=== PATIENT | female | born 1970 | race Caucasian/White ===

== ENCOUNTER 2020-12-29 11:50 | Inpatient (IN) | payer OTHER ==
[~2020-12-29] VITALS: Ht 152.4 cm; Wt 100.4 kg
[2020-12-29] MEDS: ALBUTEROL SULF 0.083% NEB SOLN 3 ML NEB NEB SCH ×3 (00:12→19:30)
[2020-12-29] MEDS ORDERED: SODIUM CHLORIDE 0.9% 1000ML 1,000 ML IV STA (12:52)
[2020-12-29] MEDS ORDERED: METHYLPREDNISOLONE SOD SUCC 125 MG/2ML VIAL IV STA (12:52)
[2020-12-29] MEDS ORDERED: ALBUTEROL/IPRATROPIUM 3 ML NEB NEB ONE (13:00)
[2020-12-29] MEDS ORDERED: LEVOFLOXACIN 750MG/D5W 150ML 150 ML IV ONE (13:00)
[2020-12-29 13:06] LABS: BASOPHILS % 0.3 % (0.0-1.0); HEMATOCRIT 42.1 % (34.2-44.1); HEMOGLOBIN 13.4 g/dL (12.0-16.0); LYMPHOCYTES # (AUTO) 1.1 (1.0-3.2); LYMPHOCYTES % 12.3 % (18.0-39.1); MEAN CORPUSCULAR HEMOGLOBIN 29.1 pg (28-32); MEAN CORPUSCULAR HGB CONC 31.8 g/dL (31-35); MEAN CORPUSCULAR VOLUME 91.3 fL (81-99); MONOCYTES # (AUTO) 0.3 (0.2-0.8); MONOCYTES % 2.8 % (4.4-11.3); NEUTROPHILS # (AUTO) 7.6 (2.1-6.9); NEUTROPHILS % 82.6 % (38.7-80.0); PLATELET COUNT 317 x10e3/uL (140-360); RED BLOOD COUNT 4.61 x10e6/uL (3.6-5.1)
[2020-12-29] MEDS ORDERED: SODIUM CHLORIDE 0.9% 1000ML 1,000 ML IV SCH (15:30)
[2020-12-29] MEDS ORDERED: ACETAMINOPHEN 325 MG TAB PO NR (15:45)
[2020-12-29 17:00] VITALS: BP 116/78
[2020-12-29 17:47] VITALS: BP 116/80
[2020-12-29 18:04] VITALS: BP 116/80
[2020-12-29] MEDS ORDERED: PNEUMOCOCCAL VACCINE POLYVALENT 23 MCG/0.5 ML VIAL IM SCH (18:07)
[2020-12-29 18:28] LABS: INR 0.85; PROTHROMBIN TIME 12.2 seconds (11.9-14.5)
[2020-12-29 18:29] LABS: PARTIAL THROMBOPLASTIN TIME 31.7 seconds (23.8-35.5)
[2020-12-29 18:31] LABS: ALANINE AMINOTRANSFERASE 54 IU/L (0-55); ALBUMIN 3.2 g/dL (3.5-5.0); ALKALINE PHOSPHATASE 118 IU/L (40-150); ANION GAP 17.1 mmol/L (8-16); BLOOD UREA NITROGEN 9 mg/dL (7-26); BUN/CREATININE RATIO 15 (6-25); CALCIUM 8.4 mg/dL (8.4-10.2); CARBON DIOXIDE 22 mmol/L (22-29); CHLORIDE 99 mmol/L (98-107); CREATINE KINASE 238 IU/L (29-168); CREATININE, SERUM 0.62 mg/dL (0.57-1.11); EST GLOMERULAR FILTRATION RATE > 60 ML/MIN (60-); GLUCOSE 132 mg/dL (74-118); POTASSIUM 4.1 mmol/L (3.5-5.1); SODIUM 134 mmol/L (136-145)
[2020-12-29] MEDS: IPRATROPIUM BROMIDE 0.02% 2.5 ML NEB NEB SCH (19:30)
[2020-12-29] MEDS ORDERED: MELATONIN10 M1 PO (20:08)
[2020-12-29] MEDS ORDERED: NP THYROID60 MG PO (20:08)
[2020-12-29] MEDS ORDERED: ATENOLOL25 MG PO (20:08)
[2020-12-29] MEDS ORDERED: ESOMEPRAZOLE MA40 MG PO (20:08)
[2020-12-29] MEDS ORDERED: VENLAFAXINE H37.5 M1 PO (20:08)
[2020-12-29] MEDS ORDERED: HYDROXYZINE HCL25 MG PO (20:08)
[2020-12-29] MEDS ORDERED: vitamin d2 PO (20:08)
[2020-12-29 21:00] VITALS: BP 137/85
[2020-12-29] MEDS: ATENOLOL 50 MG TAB PO SCH (21:00)
[2020-12-29] MEDS: GUAIFENESIN 200 MG/10 ML UDC PO PRN (21:00)
[2020-12-29] MEDS: VENLAFAXINE HCL 37.5MG XR CAP PO SCH (21:08)
[2020-12-29] MEDS: MELATONIN 5 MG TABLET PO SCH (21:09)
[2020-12-29] MEDS: METHYLPREDNISOLONE SOD SUCC 125 MG/2ML VIAL IV SCH (21:09)
[2020-12-29 21:37] VITALS: BP 137/85
[2020-12-29 22:29] VITALS: BP 137/85
[2020-12-30] VITALS (8 sets, daily range): BP systolic 119–149; BP diastolic 79–96
[2020-12-30] MEDS: IPRATROPIUM BROMIDE 0.02% 2.5 ML NEB NEB SCH ×4 (00:12→19:46)
[2020-12-30] MEDS: GUAIFENESIN 200 MG/10 ML UDC PO PRN ×2 (01:00→05:45)
[2020-12-30] MEDS: ALBUTEROL SULF 0.083% NEB SOLN 3 ML NEB NEB SCH ×5 (03:45→19:45)
[2020-12-30 04:42] LABS: BASOPHILS # (AUTO) 0.1 (0.0-0.1); BASOPHILS % 1.2 % (0.0-1.0); EOSINOPHILS # (AUTO) 0.2 (0.0-0.4); EOSINOPHILS % 3.7 % (0.0-6.0); HEMATOCRIT 48.7 % (34.2-44.1); HEMOGLOBIN 14.8 g/dL (12.0-16.0); LYMPHOCYTES # (AUTO) 1.1 (1.0-3.2); LYMPHOCYTES % 16.6 % (18.0-39.1); MEAN CORPUSCULAR HEMOGLOBIN 29.1 pg (28-32); MEAN CORPUSCULAR HGB CONC 30.4 g/dL (31-35); MEAN CORPUSCULAR VOLUME 95.9 fL (81-99); MONOCYTES # (AUTO) 0.1 (0.2-0.8); MONOCYTES % 2.1 % (4.4-11.3); NEUTROPHILS # (AUTO) 4.8 (2.1-6.9); NEUTROPHILS % 73.4 % (38.7-80.0); PLATELET COUNT 107 x10e3/uL (140-360); RED BLOOD COUNT 5.08 x10e6/uL (3.6-5.1); RED CELL DISTRIBUTION WIDTH 14.6 % (11.7-14.4)
[2020-12-30 05:16] LABS: ALANINE AMINOTRANSFERASE 54 IU/L (0-55); ALBUMIN 3.4 g/dL (3.5-5.0); ALBUMIN/GLOBULIN RATIO 0.9 (0.8-2.0); ALKALINE PHOSPHATASE 123 IU/L (40-150); ANION GAP 18.8 mmol/L (8-16); BLOOD UREA NITROGEN 8 mg/dL (7-26); BUN/CREATININE RATIO 12 (6-25); CALCIUM 8.4 mg/dL (8.4-10.2); CARBON DIOXIDE 18 mmol/L (22-29); CHLORIDE 101 mmol/L (98-107); CREATININE, SERUM 0.69 mg/dL (0.57-1.11); EST GLOMERULAR FILTRATION RATE > 60 ML/MIN (60-); GLUCOSE 165 mg/dL (74-118); POTASSIUM 3.8 mmol/L (3.5-5.1); SODIUM 134 mmol/L (136-145)
[2020-12-30 05:27] LABS: CREATINE KINASE 203 IU/L (29-168)
[2020-12-30] MEDS: THYROID 60 MG TAB PO SCH (06:12)
[2020-12-30] MEDS: METHYLPREDNISOLONE SOD SUCC 125 MG/2ML VIAL IV SCH ×2 (06:12→14:00)
[2020-12-30] MEDS: PANTOPRAZOLE SOD 40 MG TABEC PO SCH ×2 (07:30→15:59)
[2020-12-30] MEDS ORDERED: NON-FORMULARY MEDICATION (Esomeprazole Magnesium 40 MG) PO SCH (09:00)
[2020-12-30] MEDS ORDERED: ERGOCALCIFEROL 50,000 UNIT CAP PO SCH (09:00)
[2020-12-30] MEDS: KETOROLAC TROMETHAMINE 30 MG/ML VIAL IV PRN ×2 (12:37→21:19)
[2020-12-30] MEDS: BENZONATATE 100 MG CAP PO PRN ×2 (12:37→21:19)
[2020-12-30 13:58] LABS: CREATINE KINASE 199 IU/L (29-168)
[2020-12-30] MEDS: LEVOFLOXACIN 750MG/D5W 150ML 150 ML IV SCH (15:59)
[2020-12-30] MEDS ORDERED: METHYLPREDNISOLONE SOD SUCC 125 MG/2ML VIAL IV ONE (16:00)
[2020-12-30] MEDS: MELATONIN 5 MG TABLET PO SCH (21:19)
[2020-12-30] MEDS: ATENOLOL 50 MG TAB PO SCH (21:19)
[2020-12-30] MEDS: MONTELUKAST SODIUM 10 MG TAB PO SCH (21:19)
[2020-12-30] MEDS: VENLAFAXINE HCL 37.5MG XR CAP PO SCH (21:19)
[2020-12-31] VITALS (8 sets, daily range): BP systolic 116–137; BP diastolic 74–97
[2020-12-31] MEDS: ALBUTEROL SULF 0.083% NEB SOLN 3 ML NEB NEB SCH ×6 (00:07→19:42)
[2020-12-31] MEDS: IPRATROPIUM BROMIDE 0.02% 2.5 ML NEB NEB SCH ×4 (00:07→19:42)
[2020-12-31] MEDS: GUAIFENESIN 200 MG/10 ML UDC PO PRN (03:52)
[2020-12-31] MEDS: ACETAMINOPHEN 325 MG TAB PO PRN (03:52)
[2020-12-31] MEDS: THYROID 60 MG TAB PO SCH (06:00)
[2020-12-31] MEDS: MORPHINE SULFATE INJ 4 MG/ML INJ 1ML IV PRN ×2 (06:48→22:44)
[2020-12-31] MEDS: ONDANSETRON HCL INJ 2MG/ML 2ML 2 MG/ML VIAL IV PRN ×2 (06:48→22:45)
[2020-12-31] MEDS: SODIUM CHLORIDE 0.9% 1000ML 1,000 ML IV SCH (07:00)
[2020-12-31] MEDS ORDERED: IOPAMIDOL 370 MG/ML 200 ML INFUS..BTL INJ ONE (07:37)
[2020-12-31] MEDS ORDERED: SODIUM CHLORIDE 0.9% 50ML 50 ML ONE (07:37)
[2020-12-31] MEDS: PANTOPRAZOLE SOD 40 MG TABEC PO SCH ×2 (08:11→15:57)
[2020-12-31] MEDS: LEVOFLOXACIN 750MG/D5W 150ML 150 ML IV SCH (15:00)
[2020-12-31] MEDS: ENOXAPARIN SOD INJ 40 MG/0.4 ML SYR SC SCH (15:58)
[2020-12-31] MEDS: BENZONATATE 100 MG CAP PO PRN (16:35)
[2020-12-31] MEDS: GUAIFENESIN/CODEINE 10 ML CUP PO PRN ×2 (16:48→21:23)
[2020-12-31] MEDS: PIPERACILLIN/TAZOBACTAM 3.375 GM in SODIUM CHLORIDE 0.9% 50ML 50 ML IV SCH (18:00)
[2020-12-31] MEDS: MELATONIN 5 MG TABLET PO SCH (21:00)
[2020-12-31] MEDS ORDERED: ALBUTEROL SULFATE HFA 8GM INHALATION AEROSOL INH ONE (21:20)
[2020-12-31] MEDS: MONTELUKAST SODIUM 10 MG TAB PO SCH (21:22)
[2020-12-31] MEDS: VENLAFAXINE HCL 37.5MG XR CAP PO SCH (21:22)
[2020-12-31] MEDS: ATENOLOL 50 MG TAB PO SCH (21:23)
[2020-12-31] MEDS: HYDROXYZINE HCL 25 MG TAB PO PRN (22:45)
[2020-12-31] MEDS: ALBUTEROL SULFATE HFA 8GM INHALATION AEROSOL INH SCH (23:35)
[2021-01-01] VITALS (7 sets, daily range): BP systolic 114–161; BP diastolic 78–97
[2021-01-01] MEDS: ALBUTEROL SULFATE HFA 8GM INHALATION AEROSOL INH SCH ×5 (03:30→19:40)
[2021-01-01] MEDS: THYROID 60 MG TAB PO SCH (06:00)
[2021-01-01] MEDS: PIPERACILLIN/TAZOBACTAM 3.375 GM in SODIUM CHLORIDE 0.9% 50ML 50 ML IV SCH ×5 (06:00→17:45)
[2021-01-01] MEDS: GUAIFENESIN/CODEINE 10 ML CUP PO PRN ×3 (06:00→21:31)
[2021-01-01] MEDS: MORPHINE SULFATE INJ 4 MG/ML INJ 1ML IV PRN ×3 (06:30→21:45)
[2021-01-01] MEDS: ONDANSETRON HCL INJ 2MG/ML 2ML 2 MG/ML VIAL IV PRN ×3 (06:30→21:45)
[2021-01-01] MEDS: DEXAMETHASONE SOD PHOS INJ 4 MG/ML VIAL IV SCH (08:27)
[2021-01-01] MEDS: PANTOPRAZOLE SOD 40 MG TABEC PO SCH ×2 (08:27→17:20)
[2021-01-01] MEDS: SODIUM CHLORIDE 0.9% 1000ML 1,000 ML IV SCH ×2 (09:46)
[2021-01-01 10:40] LABS: FREE THYROXINE INDEX 2.2211 (1.4-3.8); THYROID STIMULATING HORMONE 1.435 uIU/mL (0.350-4.940)
[2021-01-01] MEDS: LEVOFLOXACIN 750MG/D5W 150ML 150 ML IV SCH (14:59)
[2021-01-01] MEDS: ENOXAPARIN SOD INJ 40 MG/0.4 ML SYR SC SCH (17:20)
[2021-01-01] MEDS: MELATONIN 5 MG TABLET PO SCH (21:00)
[2021-01-01] MEDS: VENLAFAXINE HCL 37.5MG XR CAP PO SCH (21:30)
[2021-01-01] MEDS: HYDROXYZINE HCL 25 MG TAB PO PRN (21:30)
[2021-01-01] MEDS: BENZONATATE 100 MG CAP PO PRN (21:30)
[2021-01-01] MEDS: ATENOLOL 50 MG TAB PO SCH (21:30)
[2021-01-01] MEDS: MONTELUKAST SODIUM 10 MG TAB PO SCH (21:30)
[2021-01-02] VITALS (8 sets, daily range): BP systolic 124–141; BP diastolic 80–96
[2021-01-02] MEDS: PIPERACILLIN/TAZOBACTAM 3.375 GM in SODIUM CHLORIDE 0.9% 50ML 50 ML IV SCH ×4 (00:15→18:33)
[2021-01-02] MEDS: ACETAMINOPHEN 325 MG TAB PO PRN (02:46)
[2021-01-02] MEDS: GUAIFENESIN/CODEINE 10 ML CUP PO PRN ×3 (02:46→21:35)
[2021-01-02] MEDS: MORPHINE SULFATE INJ 4 MG/ML INJ 1ML IV PRN ×4 (03:44→21:35)
[2021-01-02] MEDS: BENZONATATE 100 MG CAP PO PRN ×2 (03:44→21:35)
[2021-01-02] MEDS: ONDANSETRON HCL INJ 2MG/ML 2ML 2 MG/ML VIAL IV PRN ×3 (03:44→21:35)
[2021-01-02] MEDS: THYROID 60 MG TAB PO SCH (06:19)
[2021-01-02] MEDS: SODIUM CHLORIDE 0.9% 1000ML 1,000 ML IV SCH ×2 (06:19→12:58)
[2021-01-02] MEDS: PANTOPRAZOLE SOD 40 MG TABEC PO SCH ×2 (07:30→16:57)
[2021-01-02 07:42] LABS: CLARITY,URINE CLEAR (CLEAR); COLOR,URINE YELLOW (YELLOW); KETONES,URINE TRACE (NEGATIVE); LEUKOCYTE ESTERASE ,URINE NEGATIVE (NEGATIVE); NITRITE,URINE NEGATIVE (NEGATIVE); PROTEIN,URINE DIPSTICK TRACE (NEGATIVE)
[2021-01-02 07:43] LABS: URINE UROBILINOGEN 1 mg/dL (0.2 - 1)
[2021-01-02 08:26] LABS: BACTERIA,URINE FEW /HPF; EPITHELIAL CELLS,URINE FEW /LPF; RBC,URINE 0-5 /HPF (0-5); WBC,URINE (MAN) 0-5 /HPF (0-5)
[2021-01-02] MEDS: DEXAMETHASONE SOD PHOS INJ 4 MG/ML VIAL IV SCH (09:47)
[2021-01-02] MEDS: ALBUTEROL/IPRATROPIUM 3 ML NEB NEB SCH ×3 (11:00→20:00)
[2021-01-02 11:10] LABS: BASOPHILS # (AUTO) 0.1 (0.0-0.1); BASOPHILS % 0.7 % (0.0-1.0); HEMATOCRIT 38.6 % (34.2-44.1); HEMOGLOBIN 12.5 g/dL (12.0-16.0); LYMPHOCYTES # (AUTO) 4.4 (1.0-3.2); LYMPHOCYTES % 32.7 % (18.0-39.1); MEAN CORPUSCULAR HEMOGLOBIN 30.4 pg (28-32); MEAN CORPUSCULAR HGB CONC 32.4 g/dL (31-35); MEAN CORPUSCULAR VOLUME 93.9 fL (81-99); MONOCYTES # (AUTO) 0.9 (0.2-0.8); MONOCYTES % 6.3 % (4.4-11.3); NEUTROPHILS # (AUTO) 7.4 (2.1-6.9); NEUTROPHILS % 54.9 % (38.7-80.0); PLATELET COUNT 306 x10e3/uL (140-360); RED BLOOD COUNT 4.11 x10e6/uL (3.6-5.1); RED CELL DISTRIBUTION WIDTH 14.8 % (11.7-14.4)
[2021-01-02] MEDS: LEVOFLOXACIN 750MG/D5W 150ML 150 ML IV SCH (15:00)
[2021-01-02] MEDS: ENOXAPARIN SOD INJ 40 MG/0.4 ML SYR SC SCH (17:00)
[2021-01-02] MEDS: BUDESONIDE/FORMOTEROL 160/4.5MCG INHALER INH SCH (20:00)
[2021-01-02] MEDS: MELATONIN 5 MG TABLET PO SCH (20:54)
[2021-01-02] MEDS: MONTELUKAST SODIUM 10 MG TAB PO SCH (21:35)
[2021-01-02] MEDS: VENLAFAXINE HCL 37.5MG XR CAP PO SCH (21:35)
[2021-01-02] MEDS: HYDROXYZINE HCL 25 MG TAB PO PRN (21:35)
[2021-01-02] MEDS: ATENOLOL 50 MG TAB PO SCH (21:35)
[2021-01-03] VITALS (8 sets, daily range): BP systolic 135–168; BP diastolic 82–94
[2021-01-03] MEDS: SODIUM CHLORIDE 0.9% 1000ML 1,000 ML IV SCH (01:40)
[2021-01-03] MEDS: ALBUTEROL/IPRATROPIUM 3 ML NEB NEB SCH ×7 (01:57→23:00)
[2021-01-03] MEDS ORDERED: MELATONIN 5 MG TABLET PO PRN (02:45)
[2021-01-03] MEDS: MORPHINE SULFATE INJ 4 MG/ML INJ 1ML IV PRN ×4 (03:28→22:40)
[2021-01-03] MEDS: ONDANSETRON HCL INJ 2MG/ML 2ML 2 MG/ML VIAL IV PRN ×4 (03:28→22:40)
[2021-01-03] MEDS: GUAIFENESIN/CODEINE 10 ML CUP PO PRN ×4 (03:29→23:00)
[2021-01-03] MEDS: BENZONATATE 100 MG CAP PO PRN ×2 (03:29→10:10)
[2021-01-03 05:39] LABS: BASOPHILS # (AUTO) 0.1 (0.0-0.1); BASOPHILS % 0.9 % (0.0-1.0); EOSINOPHILS # (AUTO) 0.1 (0.0-0.4); EOSINOPHILS % 0.4 % (0.0-6.0); HEMATOCRIT 35.9 % (34.2-44.1); HEMOGLOBIN 11.6 g/dL (12.0-16.0); LYMPHOCYTES # (AUTO) 4.4 (1.0-3.2); MEAN CORPUSCULAR HEMOGLOBIN 30.4 pg (28-32); MEAN CORPUSCULAR HGB CONC 32.3 g/dL (31-35); MONOCYTES % 6.5 % (4.4-11.3); NEUTROPHILS # (AUTO) 8.6 (2.1-6.9); NEUTROPHILS % 56.2 % (38.7-80.0); PLATELET COUNT 288 x10e3/uL (140-360); RED BLOOD COUNT 3.82 x10e6/uL (3.6-5.1); RED CELL DISTRIBUTION WIDTH 14.8 % (11.7-14.4)
[2021-01-03 06:35] LABS: BLOOD UREA NITROGEN 11 mg/dL (7-26); BUN/CREATININE RATIO 16 (6-25); CALCIUM 7.7 mg/dL (8.4-10.2); CARBON DIOXIDE 26 mmol/L (22-29); CHLORIDE 104 mmol/L (98-107); CREATININE, SERUM 0.68 mg/dL (0.57-1.11); EST GLOMERULAR FILTRATION RATE > 60 ML/MIN (60-); GLUCOSE 139 mg/dL (74-118); SODIUM 139 mmol/L (136-145)
[2021-01-03] MEDS: PANTOPRAZOLE SOD 40 MG TABEC PO SCH ×2 (06:35→16:30)
[2021-01-03] MEDS: PIPERACILLIN/TAZOBACTAM 3.375 GM in SODIUM CHLORIDE 0.9% 50ML 50 ML IV SCH ×4 (06:35→13:00)
[2021-01-03] MEDS: THYROID 60 MG TAB PO SCH (06:35)
[2021-01-03 06:46] LABS: ANISOCYTOSIS SLIGHT; BAND NEUTROPHILS % (MANUAL) 1 %; LYMPHOCYTES % (MANUAL) 30 % (19-48); MONOCYTES % (MANUAL) 5 % (3.4-9.0); MYELOCYTES % (MANUAL) 4 % (0-0); NEUTROPHILS % (MANUAL) 59 % (40-74); PLATELET ESTIMATE ADEQUATE; PLATELET MORPHOLOGY COMMENT FEW LARGE; RBC MORPHOLOGY COMMENT NORMAL
[2021-01-03] MEDS: ALBUTEROL SULFATE HFA 8GM INHALATION AEROSOL INH PRN ×3 (07:38→15:19)
[2021-01-03] MEDS: BUDESONIDE/FORMOTEROL 160/4.5MCG INHALER INH SCH ×2 (07:38→19:50)
[2021-01-03] MEDS: PREDNISONE 20 MG TAB PO SCH (08:33)
[2021-01-03] MEDS: HYDROXYZINE HCL 25 MG TAB PO PRN (10:05)
[2021-01-03] MEDS ORDERED: HYDROXYZINE HCL 25 MG TAB PO PRN ×2 (11:45)
[2021-01-03] MEDS: LEVOFLOXACIN 750MG/D5W 150ML 150 ML IV SCH (15:33)
[2021-01-03] MEDS: BENZONATATE 100 MG CAP PO SCH ×2 (16:30→23:00)
[2021-01-03] MEDS: ENOXAPARIN SOD INJ 40 MG/0.4 ML SYR SC SCH (16:30)
[2021-01-03] MEDS: VENLAFAXINE HCL 37.5MG XR CAP PO SCH (21:24)
[2021-01-03] MEDS: ATENOLOL 50 MG TAB PO SCH (21:24)
[2021-01-03] MEDS: MONTELUKAST SODIUM 10 MG TAB PO SCH (21:24)
[2021-01-04 00:14] VITALS: BP 121/75
[2021-01-04] MEDS: ALBUTEROL/IPRATROPIUM 3 ML NEB NEB SCH ×2 (03:00→07:00)
[2021-01-04 04:54] VITALS: BP 128/86
[2021-01-04] MEDS: MORPHINE SULFATE INJ 4 MG/ML INJ 1ML IV PRN (04:55)
[2021-01-04] MEDS: ONDANSETRON HCL INJ 2MG/ML 2ML 2 MG/ML VIAL IV PRN (04:56)
[2021-01-04] MEDS: THYROID 60 MG TAB PO SCH (05:33)
[2021-01-04] MEDS: GUAIFENESIN/CODEINE 10 ML CUP PO PRN (05:33)
[2021-01-04] MEDS: BENZONATATE 100 MG CAP PO SCH (05:33)
[2021-01-04 05:59] LABS: BASOPHILS # (AUTO) 0.2 (0.0-0.1); BASOPHILS % 0.9 % (0.0-1.0); HEMATOCRIT 38.4 % (34.2-44.1); HEMOGLOBIN 12.1 g/dL (12.0-16.0); LYMPHOCYTES # (AUTO) 5.8 (1.0-3.2); LYMPHOCYTES % 31.7 % (18.0-39.1); MEAN CORPUSCULAR HEMOGLOBIN 28.9 pg (28-32); MEAN CORPUSCULAR HGB CONC 31.5 g/dL (31-35); MEAN CORPUSCULAR VOLUME 91.9 fL (81-99); MONOCYTES # (AUTO) 1.3 (0.2-0.8); MONOCYTES % 7.3 % (4.4-11.3); NEUTROPHILS # (AUTO) 9.7 (2.1-6.9); NEUTROPHILS % 52.9 % (38.7-80.0); PLATELET COUNT 387 x10e3/uL (140-360); RED BLOOD COUNT 4.18 x10e6/uL (3.6-5.1); RED CELL DISTRIBUTION WIDTH 14.4 % (11.7-14.4)
[2021-01-04] MEDS ORDERED: METOCLOPRAMIDE HCL 10 MG/2ML VIAL IV SCH (06:00)
[2021-01-04 06:19] LABS: ALANINE AMINOTRANSFERASE 188 IU/L (0-55); ALKALINE PHOSPHATASE 102 IU/L (40-150); ANION GAP 13.1 mmol/L (8-16); BLOOD UREA NITROGEN 12 mg/dL (7-26); BUN/CREATININE RATIO 17 (6-25); CALCIUM 8.1 mg/dL (8.4-10.2); CARBON DIOXIDE 28 mmol/L (22-29); CHLORIDE 103 mmol/L (98-107); CREATININE, SERUM 0.69 mg/dL (0.57-1.11); EST GLOMERULAR FILTRATION RATE > 60 ML/MIN (60-); GLUCOSE 98 mg/dL (74-118); MAGNESIUM 2.3 MG/DL (1.3-2.1); POTASSIUM 4.1 mmol/L (3.5-5.1); SODIUM 140 mmol/L (136-145)
[2021-01-04] MEDS: BUDESONIDE/FORMOTEROL 160/4.5MCG INHALER INH SCH (07:00)
[2021-01-04] MEDS: ALBUTEROL SULFATE HFA 8GM INHALATION AEROSOL INH PRN (07:55)
[2021-01-04 08:17] LABS: BAND NEUTROPHILS % (MANUAL) 4 %; LYMPHOCYTES % (MANUAL) 29 % (19-48); MONOCYTES % (MANUAL) 6 % (3.4-9.0); MYELOCYTES % (MANUAL) 3 % (0-0); NEUTROPHILS % (MANUAL) 58 % (40-74)
[2021-01-04] MEDS: PREDNISONE 20 MG TAB PO SCH (08:22)
[2021-01-04 08:46] VITALS: BP 117/82
[2021-01-04 09:00] VITALS: BP 117/82
[2021-01-04] MEDS ORDERED: ALBUTEROL0.63 MG/3 NEB (10:12)
[2021-01-04] MEDS ORDERED: BENZONATATE200 MG PO (10:13)
[2021-01-04] MEDS ORDERED: MONTELUKAST SOD10 MG PO (10:15)
[2021-01-04] MEDS ORDERED: PREDNISONE20 MG PO (10:15)
[2021-01-04] MEDS ORDERED: ZOFRAN4 MG PO (10:16)
[2021-01-04] MEDS ORDERED: PROMETHAZI6.25 MG/5 PO (10:18)
[2021-01-04] MEDS ORDERED: REGLAN10 MG PO ×2 (10:19→10:20)
[2021-01-04] MEDS ORDERED: DEXILANT60 MG (10:21)
[2021-01-21] MEDS ORDERED: OMEPRAZOLE40 MG PO (16:18)
[2021-01-21] MEDS ORDERED: EFFEXOR XR 3737.5 MG PO (16:18)
== END 2021-01-04 10:40 | disposition home or self-care (01) | DRG 194 ==
LOC: ER 13:58 → ERHOLD 15:33 → MED/SURG2 16:26
PROVIDERS: ADMIT Family Medicine; ATTEND Family Medicine
PROC: 8E0ZXY6 Isolation (ICD-10-PCS; principal; 2020-12-29)
DX: J12.9 Viral pneumonia, unspecified (principal); Z68.41 Body mass index [BMI] 40.0-44.9, adult; E66.01 Morbid (severe) obesity due to excess calories; I10 Essential (primary) hypertension; K21.9 Gastro-esophageal reflux disease without esophagitis; J69.0 Pneumonitis due to inhalation of food and vomit; E03.9 Hypothyroidism, unspecified; J98.01 Acute bronchospasm; Z88.8 Allergy status to other drugs, medicaments and biological substances; Z82.49 Family history of ischemic heart disease and other diseases of the circulatory system; Z20.822 Contact with and (suspected) exposure to COVID-19; Z98.84 Bariatric surgery status
CPT/HCPCS: 36415; 71045; 71046; 71260; 74246; 80048; 80053; 81001; 82550; 82553; 83036; 83735; 83880; 84436; 84443; 84479; 84484; 85025; 85610; 85730; 87040; 87400; 93005; 94640; 94664; 96361; 99284; J1100; J1650; J1885; J2270; J2405; J2543; J2765; J2930; J3410; J7030; J7512; Q9967; U0002

== ENCOUNTER → 2021-01-22 | Day surgery (SDC) | payer OTHER ==
[~2021-01-22] MED LIST: ALBUTEROL0.63 MG/3 NEB; ATENOLOL25 MG PO; BENZONATATE200 MG PO; DEXILANT60 MG; EFFEXOR XR 3737.5 MG PO; ESOMEPRAZOLE MA40 MG PO; FENTANYL CITRATE/PF 100MCG/2 ML INJ ONE; HYDROXYZINE HCL25 MG PO; LIDOCAINE HCL 2% LOCAL INJ 5 ML SDV VIAL INJ ONE; MELATONIN10 M1 PO; METOCLOPRAMIDE HCL 10 MG/2ML VIAL ONE; MIDAZOLAM HCL 2 MG/2 ML VIAL ONE; MONTELUKAST SOD10 MG PO; NP THYROID60 MG PO; OMEPRAZOLE40 MG PO; PREDNISONE20 MG PO; PROMETHAZI6.25 MG/5 PO; PROPOFOL IV EMULSION 10 MG/ML 20 ML VIAL ONE; REGLAN10 MG PO; VENLAFAXINE H37.5 M1 PO; ZOFRAN4 MG PO; vitamin d2 PO
[2021-01-22 11:00] VITALS: BP 125/86
== END | disposition home or self-care (01) ==
LOC: OR 06:11
PROVIDERS: ATTEND Internal Medicine Gastroenterology
DX: K21.9 Gastro-esophageal reflux disease without esophagitis (principal); K29.70 Gastritis, unspecified, without bleeding; K20.90 Esophagitis, unspecified without bleeding; K44.9 Diaphragmatic hernia without obstruction or gangrene; D72.820 Lymphocytosis (symptomatic); Z98.84 Bariatric surgery status; I10 Essential (primary) hypertension; E03.9 Hypothyroidism, unspecified; F32.9 Major depressive disorder, single episode, unspecified; F17.210 Nicotine dependence, cigarettes, uncomplicated; Z88.3 Allergy status to other anti-infective agents; Z88.8 Allergy status to other drugs, medicaments and biological substances; Z79.82 Long term (current) use of aspirin; Z68.41 Body mass index [BMI] 40.0-44.9, adult; Z87.01 Personal history of pneumonia (recurrent)
CPT/HCPCS: 43239; C9113; J2001; J2250; J2704; J2765; J3010